=== PATIENT | female | born 1990 | race Caucasian/White ===

== ENCOUNTER → 2017-09-10 | Outpatient (CLI) | payer OTHER ==
[~2017-09-10] MED LIST: DARVOCET-N 1001 EACH PO; FLEXERIL10 MG PO; IBUPROFEN400 MG PO; NAPROSYN 500MG500 MG PO; PERCOCET 5/3251 EACH PO; PRENATAL PLUS1 TA1 PO
--- NOTE | 2017-09-10 13:05 | RADIOLOGY REPORT PS360 ---
US BREAST-RT COMPLETE W/AXILLA COMPARISON: Ultrasound left breast same date HISTORY: Bilateral breast pain TECHNIQUE: Ultrasound evaluation of the entire right breast FINDINGS: Diffuse heterogenic echogenicity is seen in all 4 quadrants consistent with fibrocystic change. Is no suspicious cystic or solid mass identified. There are 2 normal-appearing nodes in the right axilla. IMPRESSION: Grossly normal-appearing fibrocystic changes with no suspicious lesion seen
--- NOTE | 2017-09-10 13:07 | RADIOLOGY REPORT PS360 ---
US BREAST-LT COMPLETE W/AXILLA COMPARISON: Right breast ultrasound same date HISTORY: Bilateral breast pain TECHNIQUE: Ultrasound evaluation of the entire left breast FINDINGS: Prominent heterogenic echogenicity is seen throughout all 4 quadrants. There is no suspicious cystic or solid mass. There is a normal-sized node in the axilla. IMPRESSION: Subtle findings consistent with fibrocystic change no suspicious lesion identified
== END ==
LOC: RAD 10:26
DX: N60.12 Diffuse cystic mastopathy of left breast (principal)